=== PATIENT | male | born 1960 | race Caucasian/White ===

== ENCOUNTER → 2018-08-13 | Outpatient (CLI) | payer MEDICAID | LOC: FIMAGING 14:21 | PROVIDERS: ATTEND Physician Assistant | DX: I80.292 Phlebitis and thrombophlebitis of other deep vessels of left lower extremity (principal); Z86.718 Personal history of other venous thrombosis and embolism ==

== ENCOUNTER → 2018-09-17 | Outpatient (CLI) | payer MEDICAID | LOC: FIMAGING 12:42 → EDSTATUS 12:45 | PROVIDERS: ATTEND Internal Medicine | DX: M79.671 Pain in right foot (principal) ==